=== PATIENT | male | born 2000 | race African-American/Black ===

== ENCOUNTER 2022-03-27 17:14 | Emergency (ER) | payer OTHER, SELFPAY ==
[2022-03-27] MEDS ORDERED: Lidocaine 1% PF 5 ML VIAL ONE ×2 (18:02→18:07)
[2022-03-27] MEDS ORDERED: Boostrix 0.5 ML (Tdap) VIAL ONE (18:07)
[2022-03-27] MEDS ORDERED: Bacitracin 1 PK ONE (18:18)
== END 2022-03-27 18:32 | disposition home or self-care (01) ==
LOC: ERS 17:14
DX: S81.812A Laceration without foreign body, left lower leg, initial encounter (principal); W22.8XXA Striking against or struck by other objects, initial encounter; Y92.69 Other specified industrial and construction area as the place of occurrence of the external cause
CPT/HCPCS: 12032; 90471; 90715